=== PATIENT | female | born 1970 | race Caucasian/White ===

== ENCOUNTER → 2017-03-11 | Day surgery (SDC) | payer OTHER ==
[~2017-03-11] VITALS: Ht 165.1 cm; Wt 75.1 kg
[~2017-03-11] MED LIST: ACETAMINOPHEN 1000 MG/100 ML 100 ML IV ONE; ACETAMINOPHEN/HYDROcodone 325 MG/5 MG TAB PO PRN; ACETAMINOPHEN/HYDROcodone 325 MG/7.5 MG TAB PO PRN; APREPITANT 40 MG CAP ONE; BACITRACIN TOP OINT 15 GM TUBE ONE; BUPIVACAINE HCL PF 0.25% 30 ML VIAL ONE; BUPIVACAINE/EPINEPHRINE 0.5% PF 10 ML VIAL ONE; CELE40TA PO; CHLORHEXIDINE GLUCONATE 2 % 1 PACK (2 CLOTHS) TOPICAL PRN; DEXAMETHASONE SOD PHOS 4 MG/ML VIAL IV ONE; DO NOT ADM ANY ANTICOAGULANT DRUGS PRN; FAMOTIDINE 20 MG/2 ML VIAL ONE; IBUPROFEN 600 MG TAB PO PRN; INSULIN HUMAN REGULAR 1,000 UNITS/10 ML VIAL SQ PRN; LACTATED RINGER'S 1000 ML IV PRN; LIDOCAINE HCL 1% 50 ML VIAL ONE; METOPROLOL TARTRATE 25 MG TAB PO PRN; MIDAZOLAM HCL 2 MG/2 ML VIAL ONE; ONDANSETRON HCL 4 MG/2 ML VIAL IV PUSH ONE; ONDANSETRON HCL 4 MG/2 ML VIAL IV PUSH PRN; POVIDONE IODINE 5% (ANTISEPSIS KIT) 4 APPLICATIONS EACH NARE PRN; PROMETHAZINE INJ 25 MG/ML VIAL IM PRN; PROPOFOL 200 MG/20 ML AMP IV ONE; SODIUM CHLORID 0.9% 500 ML IV PRN; ZOLO50TA PO; ceFAZolin 2 GM PREMIX 50 ML IV SCH; ceFAZolin 2 GM PREMIX 50 ML ONE
[2017-03-11 09:48] VITALS: BP 125/73; PULSE 63; RESP 18; TEMP 97.8; O2SAT 100
--- NOTE | 2017-03-12 22:16 | MP ---
cc: HUNTER AGUIRRE Corrected Copy: 03/13/17 DATE OF SURGERY: 03/11/2017 PREOPERATIVE DIAGNOSIS: Patient with recurrent vulvar condyloma. PROCEDURE: Excision and ablation of vulvar condyloma. POSTOPERATIVE DIAGNOSIS: Patient with recurrent vulvar condyloma. SURGEON: Dr. Marcial Aguirre ANESTHESIA: General with LMA. ESTIMATED BLOOD LOSS: None. DRAINS: None. OPERATIVE FINDINGS: The patient had bilateral surface lesions involving the labia majora, the mons pubis and some perineal lesions. Surgical biopsy involved largely from the right perineum. INDICATIONS FOR PROCEDURE: The patient with recurrent condyloma that were nonresponsive to topical medical therapy. The patient elected for ablative surgical therapy. PROCEDURE: The patient was taken to the operating room. Under general anesthesia had an LMA placed. She was carefully positioned in dorsolithotomy position using candy cane stirrups. She had sequentials placed on lower extremities for VTE prophylaxis. She received Ancef 2 grams prophylactically. Time-out was conducted agreed by all present in the room. EXAMINATION After she was prepped and draped revealed the findings stated above the Bovie was used, settings were 50 cutting. The larger lesions were excised with a #15 blade, shaving them at the surface of the dermis and then cauterizing the base. The smaller lesions were cauterized to ablate down through the upper dermis. The larger lesion in the right perineum was excised and sent for pathology review, and the base was cauterized. All visible lesions including pinpoint lesions were ablated without difficulty. There was no bleeding, no hematoma. After completion of the ablation, the skin was cleaned and then neosporin was placed over the wound site. At the completion of the case, final count was correct. The patient was stable. She was taken to the Recovery Room on room air. MD NILES Moreno/MITESH /8:54 AM /7:25 AM
== END | disposition home or self-care (01) ==
LOC: ESDC 06:16
PROVIDERS: ATTEND Obstetrics & Gynecology
DX: A63.0 Anogenital (venereal) warts (principal); D28.0 Benign neoplasm of vulva
CPT/HCPCS: 00940; 56501; 88305; J0131; J1100; J2250; J2405; J3010; J7120; J8501; J0690